=== PATIENT | female | born 1955 | race Caucasian/White ===

== ENCOUNTER → 2016-06-03 | Outpatient (CLI) | payer BC | LOC: LAB 06-02 10:21 → EDSTATUS 09:41 | PROVIDERS: ATTEND Family Medicine | DX: I10 Essential (primary) hypertension (principal) | CPT/HCPCS: 36415; 80048 ==

== ENCOUNTER → 2016-06-04 | Outpatient (CLI) | payer BC ==
[2016-06-04 13:28] LABS: ANION GAP 16.7 MEQ/L (3-15)
== END ==
LOC: LAB 12:26
PROVIDERS: ATTEND Family Medicine
DX: E87.1 Hypo-osmolality and hyponatremia (principal)
CPT/HCPCS: 36415; 80048

== ENCOUNTER → 2016-06-07 | Outpatient (CLI) | payer BC ==
[2016-06-07 10:59] LABS: ANION GAP 14.9 MEQ/L (3-15)
== END ==
LOC: LAB 10:06
PROVIDERS: ATTEND Family Medicine
DX: E87.1 Hypo-osmolality and hyponatremia (principal)
CPT/HCPCS: 36415; 80048

== ENCOUNTER → 2016-06-16 | Outpatient (REF) | payer BC ==
[2016-06-16 11:49] LABS: ANION GAP 15.9 MEQ/L (3-15)
== END ==
LOC: LAB 10:57
PROVIDERS: ATTEND Family Medicine
DX: I10 Essential (primary) hypertension (principal)
CPT/HCPCS: 80048

== ENCOUNTER → 2016-06-30 | Outpatient (CLI) | payer BC ==
[2016-06-30 11:05] LABS: ANION GAP 16.3 MEQ/L (3-15)
== END ==
LOC: LAB 09:39
PROVIDERS: ATTEND Family Medicine
DX: E87.1 Hypo-osmolality and hyponatremia (principal)
CPT/HCPCS: 36415; 80048